=== PATIENT | male | born 1975 | race Caucasian/White ===

== ENCOUNTER 2018-11-23 22:42 | Emergency (ER) | payer SELFPAY ==
[2018-11-23 22:53] VITALS: BP 123/75
--- NOTE | 2018-11-23 22:55 | EDM.PDOC ---
ED HPI GENERAL MEDICAL PROBLEM - General Chief Complaint: Head Injury Stated Complaint: HIT HEAD ON BOTTOM OF POOL [id number] Time Seen by Provider: 11/23/18 22:51 Source of Information: Reports: Patient History Limitations: Reports: No Limitations - History of Present Illness INITIAL COMMENTS - FREE TEXT/NARRATIVE: states did backwards flip in pool and hit head and developed pain back of neck going down shoulders. denies LOC/N/V does feel little unsteady but able to drive here. doesn't like c-collar and adjusted it himself despite warning from ER staff. Nose Pain Score (Numeric/FACES): 6 - Related Data Allergies Allergy/AdvReac Type Severity Reaction Status Date / Time No Known Allergies Allergy Verified 10/08/15 20:00 Home Meds: Home Meds Albuterol/Ipratropium [DuoNeb 3.0-0.5 MG/3 ML] 3 ml NEB Q4HRRT #1 box 09/21/15 [ Rx] Doxycycline [Vibramycin] 100 mg PO Q12HR #30 tablet 10/08/15 [Rx] methylPREDNISolone [Medrol] 4 mg PO ASDIRECTED #1 dosepk 10/08/15 [Rx] Past Medical History - Past Health History Medical/Surgical History: Denies Medical/Surgical History Cardiovascular History: Reports: None Respiratory History: Reports: None Genitourinary History: Reports: None Musculoskeletal History: Reports: None Psychiatric History: Reports: None Endocrine/Metabolic History: Reports: None Oncologic (Cancer) History: Reports: None Dermatologic History: Reports: None - Infectious Disease History Infectious Disease History: Reports: Chicken Pox - Past Surgical History Head Surgeries/Procedures: Reports: None Social & Family History - Family History Family Medical History: Noncontributory ED ROS GENERAL - Review of Systems Review Of Systems: ROS reveals no pertinent complaints other than HPI. ED EXAM, HEAD INJURY - Physical Exam Exam: See Below Exam Limited By: No Limitations General Appearance: Alert, WD/WN, Anxious, Mild Distress, Other (upset) Head: No: Ureña's Sign, Raccoon Eyes Nexus Criteria: Evidence of Intoxication. No: Posterior, Midline Cervical Tenderness, Altered Level of Consciousness, Focal Neurological Deficit, Painful Distraction Injuries Eyes: Bilateral Eye: PERRL (pupils ER @ 4mm) Ears: Hearing Grossly Normal Throat/Mouth: Normal Voice, No Airway Compromise Neck: Paraspinous Muscle Tender, Stiff Neck, Tenderness, Tender Lateral, Other ( in collar) Respiratory: No Respiratory Distress Cardiovascular: Regular Rate, Rhythm GI/Abdominal Exam: Soft, Non-Tender Neurologic: No Motor/Sensory Deficits, Alert, Oriented x 3 Skin: Normal Color, Warm/Dry - Tiffany Coma Score Best Eye Response (Axis): (4) Open Spontaneously Best Verbal Response (Axis): (5) Oriented Best Motor Response (Tiffany): (6) Obeys Commands Tiffany Total: 15 Course - Vital Signs Last Recorded V/S: Last Vital Signs Temp 36.6 C 11/23/18 22:49 Pulse Resp 21 H 11/23/18 22:49 BP 123/75 11/23/18 22:49 Pulse Ox 100 11/23/18 22:49 - Re-Assessments/Exams Free Text/Narrative Re-Assessment/Exam: 11/23/18 23:36 results discussed with pt who is feeling ok presently. Departure - Departure Time of Disposition: 23:36 Disposition: Home, Self-Care 01 Condition: Good Clinical Impression: Concussion injury of brain, Strain of neck muscle - Discharge Information Instructions: Concussion, Adult, [id number] Forms: ED Department Discharge Additional Instructions: 1) rest and avoid further injury 2) take tylenol as needed for pain 3) liquid diet next 24 hours 4) recheck if there is any change or concern
== END 2018-11-23 23:47 | disposition left against medical advice (07) ==
LOC: DL.ED 22:42
DX: S06.0X0A Concussion without loss of consciousness, initial encounter (principal); S16.1XXA Strain of muscle, fascia and tendon at neck level, initial encounter; Z79.899 Other long term (current) drug therapy; W22.8XXA Striking against or struck by other objects, initial encounter
CPT/HCPCS: 70450; 72125; 99283-25